=== PATIENT | male | born 1935 | race Caucasian/White ===

== ENCOUNTER → 2017-06-27 | Outpatient (CLI) | payer OTHER, MEDICARE | LOC: FIMAGING 12:44 | PROVIDERS: ATTEND Internal Medicine | DX: M89.8X8 Other specified disorders of bone, other site (principal); I25.10 Atherosclerotic heart disease of native coronary artery without angina pectoris ==

== ENCOUNTER → 2017-07-10 | Outpatient (CLI) | payer OTHER, MEDICARE | LOC: FIMAGING 12:36 | PROVIDERS: ATTEND Internal Medicine | DX: N20.0 Calculus of kidney (principal); K59.00 Constipation, unspecified ==

== ENCOUNTER → 2018-08-04 | Outpatient (CLI) | payer OTHER, MEDICARE ==
[~2018-08-04] MED LIST: GADOBUTROL 10 ML VIAL IVP ONE
== END ==
LOC: FIMAGING 14:05
PROVIDERS: ATTEND Internal Medicine
DX: I63.9 Cerebral infarction, unspecified (principal); R94.02 Abnormal brain scan; G31.9 Degenerative disease of nervous system, unspecified
CPT/HCPCS: 70553; A9585

== ENCOUNTER → 2018-08-05 | Outpatient (CLI) | payer OTHER, MEDICARE | LOC: FIMAGING 09:18 | PROVIDERS: ATTEND Internal Medicine | DX: G45.9 Transient cerebral ischemic attack, unspecified (principal); R94.02 Abnormal brain scan ==

== ENCOUNTER → 2018-08-11 | Outpatient (CLI) | payer OTHER, MEDICARE | LOC: FIMAGING 14:51 | PROVIDERS: ATTEND Internal Medicine | DX: G45.9 Transient cerebral ischemic attack, unspecified (principal) | CPT/HCPCS: 70549; A9585 ==

== ENCOUNTER → 2018-08-22 | Outpatient (CLI) | payer OTHER, MEDICARE | LOC: BMCIMAGING 14:49 | PROVIDERS: ATTEND Internal Medicine | DX: Z03.89 Encounter for observation for other suspected diseases and conditions ruled out (principal) ==

== ENCOUNTER → 2018-09-03 | Outpatient (CLI) | payer OTHER, MEDICARE | LOC: FIMAGING 10:23 | PROVIDERS: ATTEND Internal Medicine | DX: I63.9 Cerebral infarction, unspecified (principal); R90.82 White matter disease, unspecified | CPT/HCPCS: 70553; A9585 ==

== ENCOUNTER 2018-09-09 09:31 | Emergency (ER) | payer OTHER, MEDICARE ==
[2018-09-09 09:38] VITALS: BP 169/90
--- NOTE | 2018-09-09 10:59 | EDPHY ---
H & P Stated Complaint: MRI 09/03 abnormal Time Seen by Provider: 09/09/18 09:58 HPI/ROS: CHIEF COMPLAINT: [ ] HISTORY OF PRESENT ILLNESS: [ 82-year-old male via private vehicle with his . Patient reports that on 07/24/2018 while [facility] his he had a 2 hr episode where he developed right-sided weakness and aphasia. This spontaneously resolved. He was seen at a hospital emergency department at that time had negative CT imaging, negative echocardiography. He subsequently returns [facility] spoke with primary care provider who ordered diagnostic studies in the patient had initiation of clopidogrel therapy which he has been compliant with. He comes to the ER today because he has been trying to follow up with neurologist, spoke with associated neurologist today and was told to go to the ER for evaluation as he had a repeat MRI with and without contrast of the brain showing new small focus of diffusion restriction within the posterior left parietal subcortical white matter compatible with new focal ischemic injury at this location, performed on 09/03/2018. Since returning from his trip to [facility] he has remained asymptomatic. He has had imaging studies consisting of negative neck MRA, negative head MRI, negative lower extremity DVT study bilaterally. He had Holter monitoring results of which are currently pending. [PRIMARY CARE PROVIDER:][Dr. Feliberto Zambrano ] REVIEW OF SYSTEMS: [10 systems reviewed and negative with the exception of the elements mentioned in the history of present illness] [PAST MEDICAL & SURGICAL HISTORY:] [ No pertinent medical or surgical history ] SOCIAL HISTORY:[. Nonsmoker. ] PHYSICAL EXAM (Prior to examination, patient consented to physical exam, hands were washed and my usual and customary physical exam procedures followed) 1) GENERAL: [Well-developed, well-nourished, alert and oriented. Appears to be in no acute distress.] 2) HEAD: [Normocephalic, atraumatic] 3) HEENT: [Pupils equal, round, reactive to light bilaterally. Sclera anicteric. Symmetrical faces] [Nasopharynx, oropharynx, clear, no lesions. ][ Moist][Dry] mucous membranes. [Ears bilaterally with normal tympanic membranes.] 4) NECK: [Full range of motion, no meningeal signs.] 5) LUNGS: [Clear auscultation bilaterally, no wheezes, no rhonchi, no retractions.] 6) HEART: [Regular rate and rhythm, no murmur, no heave, no gallop.] 7) ABDOMEN: [No guarding, no rebound, no focal tenderness, negative McBurney's, negative Brand's, negative Rovsing's, negative peritoneal sign], 8) MUSCULOSKELETAL: [Moving all extremities, no focal areas of tenderness, no obvious trauma. No peripheral edema or discoloration.] 9) BACK: [No CVA tenderness, no midline vertebral tenderness, no fluctuance, no step-off, no obvious trauma, no visual or palpable abnormality.] 10) SKIN: [No rash, no petechiae.] [11) Psychiatric: Patient is oriented X 3, there is no agitation.] 12) NEURO: Awake, alert, and oriented to person, place and time. Answers questions appropriately. There were no obvious focal neurologic abnormalities. No cerebellar dysfunction. Cranial nerves 2 through to 12 intact. Normal steady gait. Upper and lower extremities bilaterally with strength 5 / 5, reflexes 2+. DIFFERENTIAL DIAGNOSIS: [ In no particular order including but limited to CVA, malignancy, intracranial hemorrhage, TIA] - Personal History Current Tetanus Diphtheria and Acellular Pertussis (TDAP): Yes - Medical/Surgical History Hx Asthma: No Hx Chronic Respiratory Disease: No Hx Diabetes: No Hx Cardiac Disease: No Hx Renal Disease: No Hx Cirrhosis: No Hx Alcoholism: No Hx HIV/AIDS: No Hx Splenectomy or Spleen Trauma: No Other PMH: TIA/Stroke, glaucoma, hyperlipidemia, - Social History Smoking Status: Former smoker Constitutional: Initial Vital Signs Temperature (C) 36.4 C 09/09/18 09:34 Heart Rate 60 09/09/18 09:34 Respiratory Rate 16 09/09/18 09:34 Blood Pressure 169/90 H 09/09/18 09:34 O2 Sat (%) 95 09/09/18 09:34 O2 Delivery Mode Room Air Allergies/Adverse Reactions: No Known Allergies Allergy (Unverified 09/09/18 09:39) Home Medications: Medication Instructions Recorded Atorvastatin Calcium 09/09/18 Azopt 1% 09/09/18 Clopidogrel 09/09/18 Ezetimibe 09/09/18 Latanoprost 09/09/18 Medical Decision Making ED Course/Re-evaluation: 11:35 a.m.: Phone consultation with neurology Dr. Aris Shaikh who recommended that the patient be admitted for telemetry, cardiology consultation as he, and I , are concerned the patient may be throwing emboli as a possible etiology for his symptoms and abnormal MRI findings. Dr. Shaikh recommended aspirin as well as continuing Plavix. Dr Shaikh will consult while inpatient. I discussed this with the patient and his . When I enter the room he is dressed. He expresses displeasure upper upon learning that we are recommending admission to the hospital. He requests that I speak with his primary care provider first before deciding whether he will stay or not.. 12:05 p.m.: Consultation with patient's primary care provider Dr. Feliberto Zambrano who recommends hospitalization as well, recommends transesophageal echocardiography. 12:10 p.m.: I re-evaluated the patient. He is dressed and wants to leave. I recommended admission to the hospital. His recommends admission to the hospital. He is adamant that he does not want to be admitted. He request times speak with his . 12:20 p.m.: I re-evaluated the patient. He and his have had time to discuss admission. I emphasized that I, send the patient's , neurology, and the patient's primary care provider have recommended admission . He is declining this. Expressed to the patient that in my professional opinion, I think he necessitates further evaluation. I have explained the risks of leaving AGAINST MEDICAL ADVICE, and patient was warned of possible consequences of leaving against medical advice, including, but not limited to, CVA, , permanent and chronic disability, permanent and chronic loss of income, need for [facility] care, and other situations and circumstances too numerous to mention herein. The patient informs me he fully understand these risks and warnings to his health and well-being by leaving the emergency department AGAINST MEDICAL ADVICE. He has been informed that he may and may need long- term care. I think the patient has the capacity to fully understand these risks and has decision making capacity. I have offered ample opportunity to answer questions. His has encouraged him to stay and he continues to decline. Patient has been informed that they are welcome to return to emergency department at any point for reevaluation. This conversation was witnessed by the patient's and nurse Jacob. 12:59 p.m.: Spoke with Dr. Aris Shaikh to update him that the patient left the hospital against medical advice Departure - Departure Disposition: Against Medical Advice Clinical Impression: Abnormal MRI of head Condition: Fair Referrals: Feliberto Zambrano MD [Primary Care Provider] - As per Instructions NIH Stroke Scale Date of Exam: 09/09/18 Time of Exam: 10:30 Level of Consciousness: Alert LOC Questions: Answers Both LOC Commands: Performs Both Correctly Best Gaze: Normal Visual: No Visual Loss Facial Palsy: Normal Motor Arm-Left: No Drift Motor Arm-Right: No Drift Motor Leg-Left: No Drift Motor Leg-Right: No Drift Limb Ataxis: Absent Sensory: Normal Best Language: No Aphasia Dysarthria: Normal Extinction and Inattention (Neglect): No Abnormality NIH Scale Score: 0
--- NOTE | 2018-09-09 15:46 | PDCONSULT ---
[employer]arm [employer] Note: Emergency department neurology phone consultation: I consulted with emergency department staff regarding the patient's recent transient neurologic symptoms and follow-up MRI showing at least 2 sequential events of left hemisphere strokes. The most recent showing acute stroke findings. Please see MRI reports for details. He is on Plavix 75 mg daily. I recommended admission to the hospital for further stroke evaluation including telemetry for paroxysmal atrial fibrillation and Cardiology consultations/ transesophageal echocardiogram -- as concern is that he may be having cardioembolic events and is at great risk for recurrent events with related morbidity and mortality. MRA head/neck did not show large vessel occlusion. The patient apparently decided to leave against medical advice (AMA) despite the emergency department, myself and his PCP record recommending admission. He was counseled regarding the risk of leaving against medical advice including the risk of , disability. Apparently, he did agree to adding aspirin 81 mg to Plavix 75 mg. He can stay on Plavix for 21 days and then remain on aspirin alone. However, this does not treat possible underlying paroxysmal atrial fibrillation. He apparently had a Holter monitor at the [facility] with the results pending. He needs cardiology follow-up regarding ECG monitoring and possible underlying paroxysmal atrial fibrillation. He was counseled at length by AL Cruz as such as he was leaving against medical advise.
== END 2018-09-09 12:27 | disposition left against medical advice (07) ==
DX: R53.1 Weakness (principal); R90.89 Other abnormal findings on diagnostic imaging of central nervous system; E78.5 Hyperlipidemia, unspecified; Z86.73 Personal history of transient ischemic attack (TIA), and cerebral infarction without residual deficits

== ENCOUNTER → 2018-10-13 | Outpatient (CLI) | payer OTHER, MEDICARE | LOC: BHFA 11:00 | PROVIDERS: ATTEND Internal Medicine Cardiovascular Disease | DX: G45.9 Transient cerebral ischemic attack, unspecified (principal) ==